=== PATIENT | male | born 1955 | race Caucasian/White ===

== ENCOUNTER 2023-11-16 18:37 | Inpatient (IN) | payer MEDICARE, OTHER ==
[2023-11-16] VITALS: BP 184/76; TEMP 97.5; O2SAT 99
[~2023-11-16] VITALS: Ht 185.4 cm; Wt 84.4 kg
[2023-11-16] MEDS ORDERED: MECL-159 PO (19:29)
[2023-11-16 19:30] LABS: BASOPHILS % (AUTO) 0.5 % (0.0-2.0); EOSINOPHILS # (AUTO) 0.2 K/uL (0.0-0.7); EOSINOPHILS % (AUTO) 2.2 % (0.0-6.0); HEMATOCRIT 39 % (39-51); HEMOGLOBIN 13.3 g/dL (13.5-17.5); LYMPHOCYTES # (AUTO) 2.4 K/uL (0.8-4.8); LYMPHOCYTES % (AUTO) 31.5 % (20.0-44.0); MEAN CORPUSCULAR HEMOGLOBIN 30 PG (26.0-33.0); MEAN CORPUSCULAR HGB CONC 34 g/dl (31.0-36.0); MEAN CORPUSCULAR VOLUME 88 fL (80-96); MONOCYTES # (AUTO) 0.5 K/uL (0.1-1.30); MONOCYTES % (AUTO) 6.7 % (2.0-12.0); NEUTROPHILS # (AUTO) 4.5 K/uL (1.8-8.9); NEUTROPHILS % (AUTO) 59.1 % (43.0-81.0); PLATELET COUNT (AUTO) 174 K/uL (150-450); RED BLOOD CELL COUNT(AUTO) 4.48 MIL/uL (4.5-6.0); RED CELL DISTRIBUTION WIDTH 14.7 % (11.5-15.0); WHITE BLOOD COUNT (AUTO) 7.6 K/uL (4.3-11.0)
[2023-11-16 19:54] LABS: INR 1.04 (0.91-1.10); PARTIAL THROMBOPLASTIN TIME 31.1 SEC (24.3-34.3)
[2023-11-16 19:56] LABS: APPEARANCE,URINE CLEAR (CLEAR); BILIRUBIN,URINE 2+ (NEGATIVE); BLOOD, URINE 3+ Ery/uL (NEGATIVE); COLOR,URINE YELLOW (YELLOW); KETONES,URINE TRACE mg/dL (NEGATIVE); LEUKOCYTE ESTERASE ,URINE NEGATIVE (NEGATIVE); NITRITE, URINE NEGATIVE (NEGATIVE); PROTEIN,URINE 1+ mg/dl (NEGATIVE); UGLUCOSE NEGATIVE (NEGATIVE)
[2023-11-16 20:06] LABS: RBC,URINE 21-50 /HPF (0-2)
[2023-11-16 20:07] LABS: ADD URINE CULTURE NO; BACTERIA,URINE Few /HPF (None Seen); SQUAMOUS EPITHELIAL CELL,UR Few /HPF (None Seen); WBC,URINE 0-2 /HPF (0-3)
[2023-11-16 20:12] LABS: CALCIUM, SERUM 8.8 mg/dL (8.5-10.1); CARBON DIOXIDE 25 mmol/L (21-32); CHLORIDE 104 mmol/L (98-107); GLUCOSE 96 mg/dL (74-106); POTASSIUM 3.7 mmol/L (3.5-5.1); SODIUM SERUM 142 mmol/L (136-145); UREA NITROGEN, BLOOD 25 mg/dL (7-18)
[2023-11-16] MEDS: SIMVASTATIN 40 MG TABLET PO SCH (22:00)
[2023-11-16 22:22] LABS: AMPHETAMINE, URINE NEGATIVE (NEGATIVE); BARBITURATE, URINE NEGATIVE (NEGATIVE); BENZODIAZEPINE, URINE NEGATIVE (NEGATIVE); CANNABINOID, URINE NEGATIVE (NEGATIVE); COCCAINE, URINE NEGATIVE (NEGATIVE); OPIATE, URINE NEGATIVE (NEGATIVE); PHENCYCLIDINE SCREEN,URINE NEGATIVE (NEGATIVE)
[2023-11-16] MEDS ORDERED: hydrALAZINE HCL IV 20 MG VIAL ONE (22:30)
[2023-11-16] MEDS: hydrALAZINE HCL IV 20 MG VIAL IV PRN (22:34)
[2023-11-16] MEDS ORDERED: IOHEXOL-350 100 ML VIAL IV ONE (22:56)
[2023-11-16] MEDS ORDERED: CT SWABBABLE VALVE TRANS SET 1 EA INFUS.SET MC ONE (22:56)
[2023-11-16] MEDS ORDERED: IV NS 0.9% 250 ML IV ONE (22:56)
[2023-11-17 00:08] VITALS: BP 184/76; TEMP 97.5; O2SAT 99
[2023-11-17] MEDS: ENOXAPARIN SODIUM 40 MG/0.4 ML DISP.SYRIN SQ SCH (00:30)
[2023-11-17] MEDS ORDERED: SIMVASTATIN 20 MG TABLET ONE (00:49)
[2023-11-17 04:05] VITALS: BP 170/72; TEMP 97.7; O2SAT 99
[2023-11-17 05:11] VITALS: BP 170/72; TEMP 97.7; O2SAT 99
[2023-11-17 07:42] LABS: BASOPHILS % (AUTO) 0.4 % (0.0-2.0); EOSINOPHILS # (AUTO) 0.2 K/uL (0.0-0.7); EOSINOPHILS % (AUTO) 2.3 % (0.0-6.0); HEMATOCRIT 38 % (39-51); LYMPHOCYTES # (AUTO) 2.5 K/uL (0.8-4.8); LYMPHOCYTES % (AUTO) 29.6 % (20.0-44.0); MEAN CORPUSCULAR HEMOGLOBIN 30 PG (26.0-33.0); MEAN CORPUSCULAR HGB CONC 34 g/dl (31.0-36.0); MEAN CORPUSCULAR VOLUME 88 fL (80-96); MONOCYTES # (AUTO) 0.6 K/uL (0.1-1.30); MONOCYTES % (AUTO) 7.2 % (2.0-12.0); NEUTROPHILS # (AUTO) 5.1 K/uL (1.8-8.9); NEUTROPHILS % (AUTO) 60.5 % (43.0-81.0); PLATELET COUNT (AUTO) 179 K/uL (150-450); RED BLOOD CELL COUNT(AUTO) 4.38 MIL/uL (4.5-6.0); RED CELL DISTRIBUTION WIDTH 14.4 % (11.5-15.0); WHITE BLOOD COUNT (AUTO) 8.5 K/uL (4.3-11.0)
[2023-11-17 07:48] LABS: CALCIUM, SERUM 9.1 mg/dL (8.5-10.1); POTASSIUM 3.4 mmol/L (3.5-5.1)
[2023-11-17 08:00] VITALS: BP 168/87; TEMP 98.2; O2SAT 98
[2023-11-17] MEDS: PANTOPRAZOLE 40 MG TABLET.DR PO SCH (08:52)
[2023-11-17] MEDS: ASPIRIN 81 MG TAB.CHEW PO SCH (08:52)
[2023-11-17] MEDS: POTASSIUM CHLORIDE 20 MEQ TAB.PRT.SR PO ONE (11:41)
[2023-11-17 16:00] VITALS: BP 170/94; TEMP 98.1; O2SAT 98
[2023-11-17 20:00] VITALS: BP 158/74; TEMP 97.7; O2SAT 97
[2023-11-17] MEDS: SIMVASTATIN 20 MG TABLET PO SCH (21:01)
[2023-11-18] VITALS: BP 155/82; TEMP 97.5; O2SAT 96
[2023-11-18 00:04] VITALS: BP 155/82; TEMP 97.5; O2SAT 99
[2023-11-18 04:00] VITALS: BP 171/89; TEMP 97.9; O2SAT 100
[2023-11-18] MEDS: hydrALAZINE HCL IV 20 MG VIAL IV PRN (05:01)
[2023-11-18 07:12] LABS: BASOPHILS % (AUTO) 0.5 % (0.0-2.0); EOSINOPHILS # (AUTO) 0.2 K/uL (0.0-0.7); EOSINOPHILS % (AUTO) 2.3 % (0.0-6.0); HEMATOCRIT 38 % (39-51); LYMPHOCYTES # (AUTO) 2.6 K/uL (0.8-4.8); LYMPHOCYTES % (AUTO) 31.5 % (20.0-44.0); MEAN CORPUSCULAR HEMOGLOBIN 30 PG (26.0-33.0); MEAN CORPUSCULAR HGB CONC 34 g/dl (31.0-36.0); MEAN CORPUSCULAR VOLUME 88 fL (80-96); MONOCYTES # (AUTO) 0.5 K/uL (0.1-1.30); MONOCYTES % (AUTO) 6.2 % (2.0-12.0); NEUTROPHILS # (AUTO) 4.9 K/uL (1.8-8.9); NEUTROPHILS % (AUTO) 59.5 % (43.0-81.0); PLATELET COUNT (AUTO) 164 K/uL (150-450); RED BLOOD CELL COUNT(AUTO) 4.36 MIL/uL (4.5-6.0); RED CELL DISTRIBUTION WIDTH 14.4 % (11.5-15.0); WHITE BLOOD COUNT (AUTO) 8.3 K/uL (4.3-11.0)
[2023-11-18 07:25] LABS: CALCIUM, SERUM 9.7 mg/dL (8.5-10.1); CREATININE 0.9 mg/dL (0.6-1.3); POTASSIUM 3.4 mmol/L (3.5-5.1)
[2023-11-18 07:30] VITALS: BP 150/86; TEMP 97.9; O2SAT 99
[2023-11-18] MEDS: POTASSIUM CHLORIDE 20 MEQ TAB.PRT.SR PO ONE (09:29)
[2023-11-18 16:23] VITALS: BP 156/93; TEMP 98.2; O2SAT 98
[2023-11-18 20:00] VITALS: BP 165/84; TEMP 98.4; O2SAT 99
[2023-11-19 01:00] VITALS: BP 165/87; TEMP 98.4; O2SAT 97
[2023-11-19 02:00] VITALS: BP 160/80
[2023-11-19 04:45] VITALS: BP 130/63; TEMP 98.2; O2SAT 98
[2023-11-19 08:22] LABS: CALCIUM, SERUM 9.8 mg/dL (8.5-10.1); POTASSIUM 3.5 mmol/L (3.5-5.1)
[2023-11-19] MEDS: AMLODIPINE BESYLATE 5 MG TABLET PO SCH (09:55)
[2023-11-19] MEDS ORDERED: ASPI-1169 PO (10:01)
[2023-11-19] MEDS ORDERED: SIMV-46 PO (10:01)
[2023-11-19] MEDS ORDERED: AMLO-212 PO (10:01)
[2023-11-19] MEDS ORDERED: PANT40TA49 PO (10:01)
[2023-11-19 12:13] VITALS: BP 159/87; TEMP 98.1; O2SAT 98
[2023-11-19] MEDS ORDERED: SIMVASTATIN 20 MG TABLET PO SCH (22:00)
[2023-11-20] MEDS ORDERED: PANTOPRAZOLE 40 MG TABLET.DR PO SCH (07:30)
[2023-11-20] MEDS ORDERED: ASPIRIN 81 MG TAB.CHEW PO SCH (09:00)
[2023-11-20] MEDS ORDERED: AMLODIPINE BESYLATE 5 MG TABLET PO SCH (09:00)
== END 2023-11-19 17:00 | DRG 66 ==
LOC: ER 18:41 → TELE 22:13 → MED 11-19 15:42
PROVIDERS: ADMIT Nurse Practitioner Acute Care; ATTEND Nurse Practitioner Acute Care
DX: I63.9 Cerebral infarction, unspecified (principal); R27.0 Ataxia, unspecified; E78.5 Hyperlipidemia, unspecified; H81.10 Benign paroxysmal vertigo, unspecified ear; I10 Essential (primary) hypertension; I25.10 Atherosclerotic heart disease of native coronary artery without angina pectoris; Z91.148 Patient's other noncompliance with medication regimen for other reason; F17.210 Nicotine dependence, cigarettes, uncomplicated; R29.701 NIHSS score 1; Z71.6 Tobacco abuse counseling; R53.1 Weakness
CPT/HCPCS: 36415; 70491-TC; 70496-TC; 71045-TC; 80048-TC; 80061-TC; 81001; 84484-TC; 85025-TC; 85652-TC; 85730-TC; 92507-TC; 92521; 92526; 92611-TC; 93307-TC; 97110-TC; 97112-TC; 97116-TC; 97530-TC; G0378; J0360; J1650; J7050; Q9967

== ENCOUNTER 2024-10-15 00:19 | Inpatient (IN) | payer MEDICARE, MEDICAID ==
[~2024-10-15] VITALS: Ht 190.5 cm; Wt 86.2 kg
[2024-10-15] VITALS (13 sets, daily range): BP systolic 100–135; BP diastolic 55–70; TEMP 97.7–98.2; O2SAT 96–100
[~2024-10-15 00:19] MED LIST: AMLO-212 PO; ASPI-1169 PO; PANT40TA49 PO; SIMV-46 PO
[2024-10-15] MEDS: ALBUTEROL FS 2.5 MG/3 ML VIAL.NEB CONTNEB ONE (00:34)
[2024-10-15] MEDS: IPRATROPIUM NEB FS 0.5 MG/2.5 ML AMPUL.NEB NEB ONE (00:34)
[2024-10-15] MEDS ORDERED: IPRATROPIUM NEB FS 0.5 MG/2.5 ML AMPUL.NEB ONE (00:35)
[2024-10-15] MEDS ORDERED: methylPREDNISolone SOD SUCC 125 MG/2ML VIAL ONE (00:35)
[2024-10-15] MEDS ORDERED: ALBUTEROL FS 2.5 MG/3 ML VIAL.NEB ONE (00:35)
[2024-10-15] MEDS: methylPREDNISolone SOD SUCC 125 MG/2ML VIAL IV ONE (00:38)
[2024-10-15 00:39] LABS: ABG BASE EXCESS 0.6 mmol/L (-2.0-3.0); ABG OXYGEN SATURATION 92.5 % (94.0-98.0); ABG PCO2 30.7 mmHg (35.0-48.0); ABG PH 7.495 (7.350-7.450); ABG PO2 61.6 mmHg (83.0-108.0); ABG TOTAL HEMOGLOBIN 11.9 G/dL (13.5-17.5); COHb 0.4 % (0.5-1.5); MetHb 0.3 % (0.0-1.5); O2Hb 91.9 % (94.0-97.0); SITE, ABG LEFT RADIAL
[2024-10-15 00:52] LABS: BASOPHILS % (AUTO) 0.4 % (0.0-2.0); EOSINOPHILS # (AUTO) 0.1 K/uL (0.0-0.7); HEMATOCRIT 33 % (39-51); HEMOGLOBIN 11.3 g/dL (13.5-17.5); LYMPHOCYTES # (AUTO) 1.9 K/uL (0.8-4.8); LYMPHOCYTES % (AUTO) 20.2 % (20.0-44.0); MEAN CORPUSCULAR HEMOGLOBIN 30 PG (26.0-33.0); MEAN CORPUSCULAR HGB CONC 34 g/dl (31.0-36.0); MEAN CORPUSCULAR VOLUME 86 fL (80-96); MONOCYTES # (AUTO) 0.5 K/uL (0.1-1.30); MONOCYTES % (AUTO) 5.7 % (2.0-12.0); NEUTROPHILS # (AUTO) 6.9 K/uL (1.8-8.9); NEUTROPHILS % (AUTO) 72.7 % (43.0-81.0); PLATELET COUNT (AUTO) 157 K/uL (150-450); RED BLOOD CELL COUNT(AUTO) 3.84 MIL/uL (4.5-6.0); RED CELL DISTRIBUTION WIDTH 14.8 % (11.5-15.0); WHITE BLOOD COUNT (AUTO) 9.5 K/uL (4.3-11.0)
[2024-10-15 00:54] LABS: CALCIUM, SERUM 8.9 mg/dL (8.5-10.1); CARBON DIOXIDE 22 mmol/L (21-32); CHLORIDE 100 mmol/L (98-107); CREATININE 1.2 mg/dL (0.6-1.3); GLUCOSE 146 mg/dL (74-106); POTASSIUM 3.5 mmol/L (3.5-5.1); SODIUM SERUM 135 mmol/L (136-145); UREA NITROGEN, BLOOD 17 mg/dL (7-18)
[2024-10-15 01:03] LABS: LACTIC ACID 1.1 mmol/L (0.4-2.0)
[2024-10-15 01:07] LABS: ALANINE AMINOTRANSFERASE 30 U/L (12-78); ALKALINE PHOSPHATASE 81 U/L (46-116); ASPARTATE AMINOTRANSFERASE 23 U/L (15-37); BILIRUBIN,DIRECT 0.2 mg/dL (0.0-0.2); BILIRUBIN,TOTAL 0.4 mg/dL (0.2-1.0); NT-PRO BNP 3400 pg/mL (0-125); TOTAL PROTEIN, SERUM 7.7 g/dL (6.4-8.2)
[2024-10-15] MEDS ORDERED: FUROSEMIDE 40 MG/4 ML VIAL ONE (01:30)
[2024-10-15] MEDS ORDERED: CLOPIDOGREL BISULFATE 75 MG TABLET ONE (01:31)
[2024-10-15] MEDS ORDERED: ENOXAPARIN SODIUM 30 MG/0.3 ML DISP.SYRIN ONE (01:33)
[2024-10-15] MEDS ORDERED: ENOXAPARIN SODIUM 60 MG/0.6 ML DISP.SYRIN SQ ONE (01:33)
[2024-10-15 01:34] LABS: D-DIMER 0.86 mg/L(FEU (0.17-0.50); INR 1.07 (0.91-1.10); PARTIAL THROMBOPLASTIN TIME 34.2 SEC (24.3-34.3); PROTHROMBIN TIME 11.3 SECS (9.2-11.1)
[2024-10-15] MEDS: ENOXAPARIN SODIUM 80 MG/0.8 ML DISP.SYRIN SQ ONE (01:40)
[2024-10-15] MEDS: CLOPIDOGREL BISULFATE 75 MG TABLET PO ONE (01:40)
[2024-10-15] MEDS: FUROSEMIDE 40 MG/4 ML VIAL IV ONE (01:40)
[2024-10-15] MEDS ORDERED: ALBUTEROL FS 2.5 MG/3 ML VIAL.NEB NEB PRN (02:00)
[2024-10-15] MEDS ORDERED: ACETAMINOPHEN 325 MG TABLET PO PRN (02:00)
[2024-10-15] MEDS ORDERED: Z GUARD REMEDY 4 OZ OINT TP PRN (02:00)
[2024-10-15] MEDS ORDERED: MAG HYDROX/AL HYDROX/SIMETH 30 ML UDC PO PRN (02:00)
[2024-10-15] MEDS ORDERED: ONDANSETRON HCL/PF 4 MG/2 ML VIAL IVP PRN (02:00)
[2024-10-15] MEDS ORDERED: MAGNESIUM HYDROXIDE 30 ML UDC PO PRN (02:00)
[2024-10-15] MEDS ORDERED: IV NS 0.9% 250 ML IV ONE ×2 (02:12→14:17)
[2024-10-15] MEDS ORDERED: IOHEXOL-350 100 ML VIAL IV ONE ×2 (02:12→14:17)
[2024-10-15] MEDS ORDERED: CT SWABBABLE VALVE TRANS SET 1 EA INFUS.SET MC ONE (02:12)
[2024-10-15 07:30] LABS: BASOPHILS % (AUTO) 0.1 % (0.0-2.0); EOSINOPHILS % (AUTO) 0.1 % (0.0-6.0); HEMATOCRIT 32 % (39-51); HEMOGLOBIN 10.8 g/dL (13.5-17.5); LYMPHOCYTES # (AUTO) 0.6 K/uL (0.8-4.8); MEAN CORPUSCULAR HEMOGLOBIN 29 PG (26.0-33.0); MEAN CORPUSCULAR HGB CONC 34 g/dl (31.0-36.0); MEAN CORPUSCULAR VOLUME 87 fL (80-96); MONOCYTES # (AUTO) 0.1 K/uL (0.1-1.30); MONOCYTES % (AUTO) 1.8 % (2.0-12.0); PLATELET COUNT (AUTO) 148 K/uL (150-450); RED BLOOD CELL COUNT(AUTO) 3.67 MIL/uL (4.5-6.0); RED CELL DISTRIBUTION WIDTH 15.1 % (11.5-15.0); WHITE BLOOD COUNT (AUTO) 7.7 K/uL (4.3-11.0)
[2024-10-15 08:11] LABS: CREATININE 1.3 mg/dL (0.6-1.3); PHOSPHORUS 4.6 mg/dL (2.5-4.9); POTASSIUM 4.1 mmol/L (3.5-5.1)
[2024-10-15] MEDS: PANTOPRAZOLE 40 MG TABLET.DR PO SCH (08:26)
[2024-10-15] MEDS: ENOXAPARIN SODIUM 80 MG/0.8 ML DISP.SYRIN SQ SCH (08:29)
[2024-10-15] MEDS: FUROSEMIDE 20 MG/2 ML VIAL IV SCH (08:31)
[2024-10-15] MEDS: methylPREDNISolone SOD SUCC 125 MG/2ML VIAL IV SCH (09:42)
[2024-10-15] MEDS: LEVOFLOXACIN (250MG) 250 MG TABLET PO SCH (09:43)
[2024-10-15] MEDS: IPRATROPIUM NEB FS 0.5 MG/2.5 ML AMPUL.NEB NEB SCH (10:01)
[2024-10-15] MEDS: ALBUTEROL FS 2.5 MG/3 ML VIAL.NEB NEB SCH (10:02)
[2024-10-15] MEDS: METOPROLOL TARTRATE 25 MG TABLET PO SCH (13:00)
[2024-10-15] MEDS ORDERED: NITROGLYCERIN 0.4 MG/TAB BOTTLE SL ONE (14:43)
[2024-10-15] MEDS ORDERED: METOPROLOL TARTRATE INJ 5 MG/5 ML AMPUL IVP PRN (14:43)
[2024-10-15] MEDS ORDERED: METOPROLOL TARTRATE INJ 5 MG/5 ML AMPUL ONE (14:44)
[2024-10-15] MEDS ORDERED: NITROGLYCERIN 0.4 MG/TAB BOTTLE ONE (14:45)
[2024-10-15] MEDS: METOPROLOL TARTRATE INJ 5 MG/5 ML AMPUL IVP PRN (14:55)
[2024-10-15] MEDS: NITROGLYCERIN 0.4 MG/TAB BOTTLE SL ONE (14:57)
[2024-10-15] MEDS: NICOTINE PATCH (21MG) 21 MG PATCH.TD24 TD SCH (15:14)
[2024-10-15] MEDS: ATORVASTATIN 40 MG TABLET PO SCH (21:43)
[2024-10-16] VITALS (11 sets, daily range): BP systolic 112–175; BP diastolic 65–98; TEMP 97.7–99.4; O2SAT 90–100
[2024-10-16 06:54] LABS: HEMATOCRIT 30 % (39-51); HEMOGLOBIN 10.5 g/dL (13.5-17.5); LYMPHOCYTES # (AUTO) 1.1 K/uL (0.8-4.8); LYMPHOCYTES % (AUTO) 9.9 % (20.0-44.0); MEAN CORPUSCULAR HEMOGLOBIN 30 PG (26.0-33.0); MEAN CORPUSCULAR HGB CONC 35 g/dl (31.0-36.0); MEAN CORPUSCULAR VOLUME 86 fL (80-96); MONOCYTES # (AUTO) 0.6 K/uL (0.1-1.30); MONOCYTES % (AUTO) 5.3 % (2.0-12.0); NEUTROPHILS # (AUTO) 9.4 K/uL (1.8-8.9); NEUTROPHILS % (AUTO) 84.8 % (43.0-81.0); PLATELET COUNT (AUTO) 168 K/uL (150-450); RED BLOOD CELL COUNT(AUTO) 3.51 MIL/uL (4.5-6.0); RED CELL DISTRIBUTION WIDTH 15.1 % (11.5-15.0); WHITE BLOOD COUNT (AUTO) 11.1 K/uL (4.3-11.0)
[2024-10-16 07:21] LABS: CHOLESTEROL 246 mg/dL (<200); HDL CHOLESTEROL 38 mg/dL (40-60); LDL 162 mg/dL (0-99); TRIGLYCERIDES 144 mg/dL (30-150)
[2024-10-16 07:26] LABS: CALCIUM, SERUM 9.4 mg/dL (8.5-10.1); CREATININE 1.3 mg/dL (0.6-1.3); PHOSPHORUS 4.2 mg/dL (2.5-4.9); POTASSIUM 4.1 mmol/L (3.5-5.1)
[2024-10-16] MEDS: ASPIRIN EC 81 MG TABLET.DR PO SCH (08:18)
[2024-10-16] MEDS: ENOXAPARIN SODIUM 40 MG/0.4 ML DISP.SYRIN SQ SCH (16:00)
[2024-10-17] VITALS (11 sets, daily range): BP systolic 100–122; BP diastolic 47–72; TEMP 98.2–99; O2SAT 95–100
[2024-10-17 07:35] LABS: CALCIUM, SERUM 8.7 mg/dL (8.5-10.1); CREATININE 1.4 mg/dL (0.6-1.3); PHOSPHORUS 4.3 mg/dL (2.5-4.9); POTASSIUM 3.6 mmol/L (3.5-5.1)
[2024-10-17 07:56] LABS: BASOPHILS % (AUTO) 0.1 % (0.0-2.0); EOSINOPHILS % (AUTO) 0.2 % (0.0-6.0); HEMATOCRIT 31 % (39-51); HEMOGLOBIN 10.3 g/dL (13.5-17.5); LYMPHOCYTES # (AUTO) 1.7 K/uL (0.8-4.8); LYMPHOCYTES % (AUTO) 15.4 % (20.0-44.0); MEAN CORPUSCULAR HEMOGLOBIN 29 PG (26.0-33.0); MEAN CORPUSCULAR HGB CONC 34 g/dl (31.0-36.0); MEAN CORPUSCULAR VOLUME 87 fL (80-96); MONOCYTES # (AUTO) 0.6 K/uL (0.1-1.30); MONOCYTES % (AUTO) 5.7 % (2.0-12.0); NEUTROPHILS # (AUTO) 8.5 K/uL (1.8-8.9); NEUTROPHILS % (AUTO) 78.6 % (43.0-81.0); PLATELET COUNT (AUTO) 160 K/uL (150-450); RED BLOOD CELL COUNT(AUTO) 3.57 MIL/uL (4.5-6.0); WHITE BLOOD COUNT (AUTO) 10.8 K/uL (4.3-11.0)
[2024-10-18] VITALS (11 sets, daily range): BP systolic 116–139; BP diastolic 67–82; TEMP 97.7–98.8; O2SAT 92–100
[2024-10-19] VITALS (14 sets, daily range): BP systolic 108–152; BP diastolic 61–86; TEMP 97.8–98.6; O2SAT 94–100
[2024-10-19 07:28] LABS: BASOPHILS % (AUTO) 0.2 % (0.0-2.0); EOSINOPHILS # (AUTO) 0.1 K/uL (0.0-0.7); EOSINOPHILS % (AUTO) 1.9 % (0.0-6.0); HEMATOCRIT 32 % (39-51); HEMOGLOBIN 10.9 g/dL (13.5-17.5); LYMPHOCYTES # (AUTO) 1.9 K/uL (0.8-4.8); LYMPHOCYTES % (AUTO) 25.6 % (20.0-44.0); MEAN CORPUSCULAR HEMOGLOBIN 29 PG (26.0-33.0); MEAN CORPUSCULAR HGB CONC 34 g/dl (31.0-36.0); MEAN CORPUSCULAR VOLUME 86 fL (80-96); MONOCYTES # (AUTO) 0.4 K/uL (0.1-1.30); MONOCYTES % (AUTO) 5.6 % (2.0-12.0); NEUTROPHILS % (AUTO) 66.7 % (43.0-81.0); PLATELET COUNT (AUTO) 212 K/uL (150-450); RED BLOOD CELL COUNT(AUTO) 3.71 MIL/uL (4.5-6.0); WHITE BLOOD COUNT (AUTO) 7.4 K/uL (4.3-11.0)
[2024-10-19 07:41] LABS: CALCIUM, SERUM 9.1 mg/dL (8.5-10.1); CREATININE 1.4 mg/dL (0.6-1.3); MAGNESIUM 2.1 mg/dL (1.8-2.4); PHOSPHORUS 4.2 mg/dL (2.5-4.9); POTASSIUM 3.1 mmol/L (3.5-5.1)
[2024-10-19] MEDS: POTASSIUM CHLORIDE 20 MEQ TAB.PRT.SR PO SCH (10:15)
[2024-10-19] MEDS: IV NS 0.9% 500 ML IV ONE (12:37)
[2024-10-20] VITALS (8 sets, daily range): BP systolic 136–155; BP diastolic 78–85; TEMP 98.4–98.8; O2SAT 96–100
[2024-10-20 09:16] LABS: CREATININE 1.2 mg/dL (0.6-1.3); MAGNESIUM 2.2 mg/dL (1.8-2.4); PHOSPHORUS 3.8 mg/dL (2.5-4.9); POTASSIUM 3.5 mmol/L (3.5-5.1)
[2024-10-20 09:26] LABS: BASOPHILS % (AUTO) 0.2 % (0.0-2.0); EOSINOPHILS # (AUTO) 0.1 K/uL (0.0-0.7); EOSINOPHILS % (AUTO) 1.6 % (0.0-6.0); HEMATOCRIT 35 % (39-51); HEMOGLOBIN 11.3 g/dL (13.5-17.5); LYMPHOCYTES # (AUTO) 1.7 K/uL (0.8-4.8); LYMPHOCYTES % (AUTO) 23.2 % (20.0-44.0); MEAN CORPUSCULAR HEMOGLOBIN 28 PG (26.0-33.0); MEAN CORPUSCULAR HGB CONC 33 g/dl (31.0-36.0); MEAN CORPUSCULAR VOLUME 86 fL (80-96); MONOCYTES # (AUTO) 0.5 K/uL (0.1-1.30); MONOCYTES % (AUTO) 7.5 % (2.0-12.0); NEUTROPHILS # (AUTO) 4.9 K/uL (1.8-8.9); NEUTROPHILS % (AUTO) 67.5 % (43.0-81.0); PLATELET COUNT (AUTO) 225 K/uL (150-450); RED CELL DISTRIBUTION WIDTH 15.2 % (11.5-15.0); WHITE BLOOD COUNT (AUTO) 7.3 K/uL (4.3-11.0)
[2024-10-21 10:56] VITALS: BP 127/76; TEMP 98.8; O2SAT 96
[2024-10-21] MEDS ORDERED: METO25TA20 PO (11:17)
[2024-10-21] MEDS ORDERED: ATOR40TA PO (11:17)
[2024-10-21] MEDS ORDERED: TICA90TA PO (11:41)
[2024-10-21 12:00] VITALS: BP 127/76; TEMP 98.8; O2SAT 96
[2024-10-21] MEDS: TICAGRELOR 90 MG TABLET PO SCH (12:26)
== END 2024-10-21 15:00 | disposition home or self-care (01) | DRG 321 ==
LOC: ER 00:21 → TELE1 01:37 → TELE-TD 01:40 → TELE1 10:37 → UNDODISIN 10-20 11:54 → MEDSG1 10-21 12:41
PROVIDERS: ADMIT Nurse Practitioner Family; ATTEND Nurse Practitioner Acute Care
PROC: 027034Z Dilation of Coronary Artery, One Artery with Drug-eluting Intraluminal Device, Percutaneous Approach (ICD-10-PCS; principal; 2024-10-20)
PROC: 4A023N7 Measurement of Cardiac Sampling and Pressure, Left Heart, Percutaneous Approach (ICD-10-PCS; 2024-10-20)
PROC: B211YZZ Fluoroscopy of Multiple Coronary Arteries using Other Contrast (ICD-10-PCS; 2024-10-20)
DX: I25.10 Atherosclerotic heart disease of native coronary artery without angina pectoris (principal); I21.A1 Myocardial infarction type 2; J96.21 Acute and chronic respiratory failure with hypoxia; J44.1 Chronic obstructive pulmonary disease with (acute) exacerbation; E44.1 Mild protein-calorie malnutrition; E87.1 Hypo-osmolality and hyponatremia; N17.9 Acute kidney failure, unspecified; I11.0 Hypertensive heart disease with heart failure; I50.9 Heart failure, unspecified; D64.9 Anemia, unspecified; E78.5 Hyperlipidemia, unspecified; E88.09 Other disorders of plasma-protein metabolism, not elsewhere classified; F17.210 Nicotine dependence, cigarettes, uncomplicated; I25.5 Ischemic cardiomyopathy; Z79.82 Long term (current) use of aspirin; Z86.73 Personal history of transient ischemic attack (TIA), and cerebral infarction without residual deficits; J44.9 Chronic obstructive pulmonary disease, unspecified; R73.9 Hyperglycemia, unspecified; Z68.23 Body mass index [BMI] 23.0-23.9, adult; Z99.81 Dependence on supplemental oxygen
CPT/HCPCS: 36415; 36600; 71045-TC; 75574; 80048-TC; 80061-TC; 80076-TC; 83605-TC; 83690-TC; 83735-TC; 83880; 84100-TC; 84484-TC; 85025-TC; 85378-TC; 85730-TC; 87040-TC; 93307-TC; 94760-TC; 94799-TC; A4223; G0378; J1650; J1938; J2919; J3490; J7040; J7050; Q9967